=== PATIENT | male | born 1950 | race Caucasian/White ===

== ENCOUNTER → 2017-05-27 | Outpatient (CLI) | payer MEDICARE, OTHER ==
--- NOTE | 2017-05-27 08:48 | RAD ---
5 views right shoulder 05/27/2017 2:00 AM Indication: FOLLOW UP FROM RT TSA Comparison: None Findings: Postoperative changes following right shoulder arthroplasty noted. Right humeral component is intact. No evidence of periprosthetic loosening involving the humeral component is seen. No fracture or dislocation is identified. Mild heterogenous lucency is seen within the glenoid. No acute soft tissue changes are identified. Impression: Postsurgical changes as described. No acute osseous changes are seen.
== END | disposition home or self-care (01) ==
LOC: DXRADRC 08:14
PROVIDERS: ATTEND Orthopaedic Surgery
DX: Z47.1 Aftercare following joint replacement surgery (principal); Z96.611 Presence of right artificial shoulder joint
CPT/HCPCS: 73030